=== PATIENT | male | born 1940 | race Caucasian/White ===

== ENCOUNTER → 2019-05-23 | Day surgery (SDC) | payer MEDICARE ==
[2019-05-16 10:42] LABS: BASOPHILS % 0.6 % (0.0-1.0); EOSINOPHILS # (AUTO) 0.1 (0.0-0.4); EOSINOPHILS % 1.1 % (0.0-6.0); HEMATOCRIT 44.2 % (38.2-49.6); HEMOGLOBIN 14.8 g/dL (14.0-18.0); LYMPHOCYTES # (AUTO) 1.4 (1.0-3.2); LYMPHOCYTES % 21.7 % (18.0-39.1); MEAN CORPUSCULAR HEMOGLOBIN 30.3 pg (28-32); MEAN CORPUSCULAR HGB CONC 33.5 g/dL (31-35); MEAN CORPUSCULAR VOLUME 90.4 fL (81-99); MONOCYTES # (AUTO) 0.7 (0.2-0.8); MONOCYTES % 10.3 % (4.4-11.3); NEUTROPHILS # (AUTO) 4.2 (2.1-6.9); PLATELET COUNT 213 x10e3/uL (140-360); RED BLOOD COUNT 4.89 x10e6/uL (4.3-5.7)
--- NOTE | 2019-05-16 11:13 | Diagnostic Imaging Report ---
Chest, 2 views, 05/16/2019. History: Preop, urologic procedure. Comparison: None available. Findings: The cardiomediastinal silhouette and pulmonary vasculature are within normal limits. The lungs are clear without evidence of consolidation or pleural effusion. Degenerative changes are present within the thoracic spine. There are no acute osseous or soft tissue abnormalities. Impression: No acute cardiopulmonary abnormality. Signed by: Gama Nicholas on 05/16/2019 11:10 AM
[~2019-05-23] MED LIST: AZO STANDARD95 MG PO; B&O 60MG R/S 60 MG SUPP PR ONE; BACTRIM DS TAB1 EACH PO; CEFTRIAXONE SOD 1 GM/NS 50 ML 50 ML IV ONE; DEXAMETHASONE SOD PHOS INJ 4 MG/ML VIAL ONE; FENTANYL CITRATE/PF 100MCG/2 ML INJ ONE; HYDROCODON-ACE1 EA12 PO; IOPAMIDOL 300MG/ML 50ML INFUS..BTL IV ONE; LIDOCAINE HCL 2% LOCAL INJ 5 ML SDV VIAL INJ ONE; ONDANSETRON HCL INJ 2MG/ML 2ML 2 MG/ML VIAL ONE; PROPOFOL IV EMULSION 10 MG/ML 20 ML VIAL ONE; SEVOFLURANE INHAL SOLN 250 ML PEN BTL ONE; SIMVASTATIN40 MG PO; Z.0.AMLODIPINE BESY1 PO; Z.0.SINGULAIR10 MG PO
--- OUTSIDE RECORDS SUMMARY | 2019-05-23 07:53 | XMS REPORT ---
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 Allergies, Adverse Reactions, Alerts This patient has no known allergies or adverse reactions. Medications This patient has no known medications. Results Test Description Test Time Test Comments Text Results Atomic Results Result Comments CHEST 2 VIEWS 2019-05-16 11:09:00 [place] [address] Patient Name: TABATHA DOMINGO MR #: [id number] : 1940 Age/Sex: 79/M Req #: [id number] Adm Physician: Ordered by: DEMAR OCONNOR MD Report #: [id number] Location: OR Room/Bed: Procedure: [id number] DX/CHEST 2 VIEWS Exam Date: 05/16/19 Exam Time: 1030 REPORT STATUS: Signed Chest, 2 views, 05/16/2019. History: Preop, urologic procedure. Comparison: None available. Findings: The cardiomediastinal silhouette and pulmonary vasculature are within normal limits. The lungs are clear without evidence of consolidation or pleural effusion. Degenerative changes are present within the thoracic spine. There are no acute osseous or soft tissue abnormalities. Impression: No acute cardiopulmonary abnormality. Signed by: Johnie Nicholas on 05/16/2019 11:10 AM Dictated By: JOHNIE NICHOLAS MD 111 Transcribed By: JUDY on 05/16/19 111 COPY TO: DEMAR OCONNOR MD
[2019-05-23 13:20] VITALS: BP 149/85
--- NOTE | 2019-06-29 15:56 | Operative Report ---
DATE OF PROCEDURE: 05/23/2019 SURGEON: Heladio Cabrera MD PREOPERATIVE DIAGNOSES: 1. Hematuria. 2. Urinary tract infections. POSTOPERATIVE DIAGNOSES: 1. Hematuria. 2. Urinary tract infections. 3. Cystolithiasis. OPERATIONS PERFORMED: 1. Cystourethroscopy with bilateral ureteral catheterization and retrograde ureteropyelography (separate procedure performed for the hematuria and urinary tract infections). 2. Interpretation of retrograde ureteropyelography. 3. Supervision of fluoroscopy, no radiologist present. 4. Cystolitholapaxy (separate procedure performed for cystolithiasis). ANESTHESIA: General. COMPLICATIONS: None. CLINICAL SUMMARY: Merrick Rausch is an 79-year-old man with a history of urethral stricture disease. He has a history of prior bladder stone. The patient is status post photoselective vaporization of the prostate in 2011. He also had prostate cancer, status post pelvic lymphadenectomy followed by radiotherapy for the localized prostate cancer. He is brought for the above procedures. He is aware of the risks of bleeding, infection, injury to adjacent structures, need for additional procedures and elected to proceed. OPERATIVE PROCEDURE IN DETAIL: Informed consent was verified. Merrick Rausch was properly identified, taken to the operating room, placed on the cystoscopy table in supine position. Anesthesia was uneventfully begun. The patient was then carefully gently repositioned in the dorsal lithotomy position with all pressure points well padded. His genitalia prepared and draped in the usual sterile fashion. A 22.5-Italian cystoscope sheath with the visual obturator in place was atraumatically inserted into the patient's urethra. It was guided down to the unremarkable distal urethra through a blanched bulbar urethral region and sphincteric region and through the prostate bed, which was relatively open, status post prior photoselective vaporization of the prostate. There was also complete epithelialization of the prostatic urethra and the bladder neck region most notably on the left hand side. There was stone material on top of the mucosa posteriorly at the 5 o'clock position. Panendoscopy of the bladder revealed no tumors and no suspicious lesions. Normally positioned configured ureteral orifices were identified. An 8-Italian catheter was used to cannulate each ureter and retrograde ureteral pyelograms were performed. Interpretation of retrograde ureteropyelography contrast was instilled in retrograde fashion bilaterally. There were no tumors, no stones, no diverticula. Unobstructed drainage was observed bilaterally fluoroscopically. A grasper then utilized to distract the stone off the bladder neck region mucosa. We fragmented the stone into a number of smaller fragments and then evacuated all the stone fragments. The patient's bladder was drained. Belladonna and opium suppository placed revealing a large prostate that was smooth, nonfluctuant without any nodules. The patient was then uneventfully reversed from anesthesia and taken to the recovery room in stable condition. There were no complications to the procedure. He tolerated the procedure well. Explicit postoperative instructions were given. We will follow the patient up in the office. Heladio MD JLUIS Cabrera/JW /[id number]
== END | disposition home or self-care (01) ==
LOC: OR 07:51
PROVIDERS: ATTEND Urology
DX: N21.0 Calculus in bladder (principal); N39.0 Urinary tract infection, site not specified; N32.81 Overactive bladder; N39.41 Urge incontinence; N28.1 Cyst of kidney, acquired; N40.1 Benign prostatic hyperplasia with lower urinary tract symptoms; R35.1 Nocturia; E29.1 Testicular hypofunction; N47.1 Phimosis; N45.3 Epididymo-orchitis; I10 Essential (primary) hypertension; J44.9 Chronic obstructive pulmonary disease, unspecified; M19.90 Unspecified osteoarthritis, unspecified site; Z01.810 Encounter for preprocedural cardiovascular examination; Z01.812 Encounter for preprocedural laboratory examination; Z01.818 Encounter for other preprocedural examination; Z85.46 Personal history of malignant neoplasm of prostate; Z92.3 Personal history of irradiation; Z87.891 Personal history of nicotine dependence
CPT/HCPCS: 36415; 52005; 52317; 71046; 74420; 85025; 88300; 93005; C1758; J0696; J1100; J2001; J2405; J2704; J3010; Q9967